=== PATIENT | male | born 1955 | race Caucasian/White ===

== ENCOUNTER → 2020-05-20 | Day surgery (SDC) | payer OTHER ==
[~2020-05-20] VITALS: Ht 180.3 cm; Wt 91.2 kg
[2020-05-20] VITALS (12 sets, daily range): BP systolic 120–177; BP diastolic 61–93
[~2020-05-20] MED LIST: ASPIR 8181 MG; ATORVASTATIN CA20 MG PO; B-121000 MC2; CARVEDILOL3.125 MG PO; CLOPIDOGREL75 MG PO; DEXILANT60 MG; FENTANYL CITRATE/PF 100MCG/2 ML INJ ONE; FERROUS SULFAT325 MG PO; FLOMAX0.4 MG PO; HEMATINIC-FOLI1 EACH; HEPARIN SOD (PORCINE) 1000 UNIT/ML 30ML ONE; HEPARIN SOD/SOD CHLORIDE 2,000 ML ONE; IOPAMIDOL 370 MG/ML 200 ML INFUS..BTL INJ ONE; KLOR-CON 1010 MEQ PO; LIDOCAINE HCL 2% LOCAL 20 ML VIAL ONE; LOSARTAN POTASS25 MG PO; MIDAZOLAM HCL 2 MG/2 ML VIAL ONE; NITROGLYCERIN/D5W 200 MCG/ML 250 ML ONE; NOVOLOG; SERTRALINE HCL50 MG PO; SODIUM CHLORIDE 0.9% 1000ML 1,000 ML ONE; VERAPAMIL HCL 2.5 MG/ML 2 ML VIAL ONE
[2020-05-20 09:35] LABS: BASOPHILS % 0.7 % (0.0-1.0); EOSINOPHILS # (AUTO) 0.2 (0.0-0.4); EOSINOPHILS % 3.7 % (0.0-6.0); HEMATOCRIT 32.2 % (38.2-49.6); HEMOGLOBIN 11.4 g/dL (14.0-18.0); MEAN CORPUSCULAR HEMOGLOBIN 29.9 pg (28-32); MEAN CORPUSCULAR HGB CONC 35.4 g/dL (31-35); MEAN CORPUSCULAR VOLUME 84.5 fL (81-99); MONOCYTES # (AUTO) 0.5 (0.2-0.8); NEUTROPHILS # (AUTO) 3.9 (2.1-6.9); NEUTROPHILS % 68.9 % (38.7-80.0); PLATELET COUNT 272 x10e3/uL (140-360); RED BLOOD COUNT 3.81 x10e6/uL (4.3-5.7); RED CELL DISTRIBUTION WIDTH 12.7 % (11.7-14.4)
[2020-05-20 10:03] LABS: ALBUMIN 3.4 g/dL (3.5-5.0); ANION GAP 13.2 mmol/L (8-16); CREATININE, SERUM 1.35 mg/dL (0.72-1.25); POTASSIUM 4.2 mmol/L (3.5-5.1)
--- NOTE | 2020-05-20 12:21 | NUR ---
1221p Received pt to room #10, Identiferx2,bedside report received from AMEYA Ko. Alert oriented and appropriate, PERRLA, respirations even and unlabored to room air. Pulses x4 extremities equal and strong. Pedal pulses PT/DP X4 and marked. Cap fill brisk < 3 sec. Rt Tr band site no gross issues pain pallor,pressure or dysrhythmia. TR down time at 13:45p dc home at 1700pm DC planning to be compleed with family PU at [facility]. Skin warm and dry integrity appears D/I. IV 20g to left hand presents healthy w/o s/s of infiltration or complaint. 100cchr. Pt has some mbilty issues to left hand assist with snack tray. back to baseline orientation tolerated well w/o nausea .Abdomen soft and supple. pt offered toileting, denies need to urinate or defecate. No personal affects with patient. Family no present at bedside. Pt verbalizes understanding of POC. Currently w/o complaint of pain or need. ds/rn
--- NOTE | 2020-05-20 13:30 | NUR ---
1330 oozing noted to rt tr band site Normal neuro vascular function. +2cc total 14cc in balloon No bleeding or hematoma at this time ds/rn
--- NOTE | 2020-05-20 13:45 | NUR ---
1345p RADIAL Compression removal: Initial Cuff volume (-14cc) 1345p (-2cc) Removed No hematoma/bleeding noted with normal neurovascular function.oozed returned air to ballon 1415p (-2cc) Removed No hematoma/ bleeding noted with normal neurovascular function. 1400p hold air removal a ooze with test removal. ds/rn
--- NOTE | 2020-05-20 14:58 | NUR ---
1458 Yeison Rn to access TR band -5cc x2 positive +4cc remains in tr band balloon. No gross issues bleeding or hematoma. Resume air removal at 1515pm Denies c/o Cp or SOB ds/rn
--- NOTE | 2020-05-20 15:00 | NUR ---
1500p CONTINUATION RADIAL Compression removal: Initial Cuff volume 4cc left TR-BAND 1515p -2cc Removed No hematoma/bleeding noted with normal neurovascular function. 1530 -2cc Removed No hematoma/ bleeding noted with normal neurovascular function. Air removal completed. Stasis achieved sterile 2x2,Tegaderm, Coban dressing No hematoma, bleeding noted with normal neurovascular function. Wrist splint in place. Pt instructed on POC. Ds/Rn
--- NOTE | 2020-05-20 15:45 | NUR ---
1545 TR band site secured Normal neuro vascular function awaiting dc home time at 1700pm ds/rn
--- NOTE | 2020-05-20 17:00 | NUR ---
1700-CCL Pt discharge nursing note:Pt meets DC criteria. Site rt wrist assessed for s/s of complication and presence of hematoma. Skin warm, dry, no discolor, and pulses present. IV removed from left hand. Distal tip appears intact. VS WNL. Pt denies pain, sob, or need at this time. Family at [facility] dc plans completed. Review of discharge paperwork and follow up instructions. verbalized understanding. Pt to wheelchair and transported to front of hospital. Transferred to private vehicle under own strength w/o incident with DC paperwork in hand. - ds/rn
--- NOTE | 2020-05-20 18:19 | Operative Report ---
DATE OF PROCEDURE: 05/20/2020 SURGEON: Manuel Zayas MD INDICATIONS FOR PROCEDURE: Coronary artery disease, stable angina, and positive stress test. PREPROCEDURE ASSESSMENT: The risks, the benefits, and the alternatives of treatment were explained to the patient prior to the procedure. Informed consent was obtained and documented in the medical record. The patient was deemed to be an appropriate candidate for moderate sedation. MEDICATIONS: Please see nursing notes for medications administered throughout the procedure. PROCEDURES PERFORMED: 1. Coronary angiography, right radial approach. 2. Intravascular ultrasound, LAD. 3. Intravascular ultrasound, left circumflex. 4. PCI to left circumflex with drug-eluting stent x1. 5. Moderate sedation supervision, 60 minutes. PROCEDURE DETAILS: The patient was brought to the cardiac catheterization laboratory in a fasting state. Right wrist was prepped and draped in a sterile fashion. A 6-[place] Slender sheath was inserted in the right radial artery using modified Seldinger technique. Coronary angiography was performed using a 5-[place] Rafia radial catheter to engage both the left and right coronary systems. Left heart catheterization was performed using the same Rafia radial catheter. Multiple orthogonal views were taken of each coronary artery. Catheter was removed over the mid LAD stents that appeared to be a hazy area in the midportion of the LAD stents given severe apical ischemia on stress test. We decided to proceed with intravascular ultrasound to confirm for PCI. An XB 3.0 guide catheter was used, which provided adequate support. LAD was wired using a Runthrough wire. Intravascular ultrasound was performed, which showed no significant in-stent restenoses in the LAD. We then changed our attention to the mid left circumflex lesion seen on angiography. The wire was pulled back onto the LAD and advanced across the left circumflex lesion. IVUS was performed, which demonstrated 76% stenosis by IVUS in a large 4 mm left circumflex. We decided to proceed with PCI. For PCI of the left circumflex, direct stenting was performed using a 4.0 x 16 mm Synergy drug-eluting stent, deployed at 14 atmospheres for 20 seconds. This resulted in excellent angiographic results. There were no immediate complications. All catheters were removed over a wire. Access site was closed using a TR band device. Aspirin and Plavix were given at the end of the case in the bottle labeler. ACT near 300 was maintained throughout the procedure using IV boluses of heparin. SIGNIFICANT FINDINGS: Left main; large vessel, no significant disease. LAD; patent stents in the mid LAD. One large diagonal branch mild plaquing only. Left circumflex; large vessel, nondominant, 2 significant OM branches, 60% ostial stenoses in the bifurcation of the 2 OMs distally, 60% to 70% stenosis in the mid left circumflex artery. RCA; large dominant RCA, 30% plaque in the proximal portion, mild plaquing in the RPDA and RPL system. Left heart catheterization demonstrated LVEDP of 14. There was no gradient across the aortic valve. GRAFTS AND IMPLANTS: Drug-eluting stent x1. ESTIMATED BLOOD LOSS: None. SPECIMENS REMOVED: None. COMPLICATIONS: None. FINAL RECOMMENDATIONS: 1. Continue aspirin and Plavix. 2. Follow up in clinic 1 to 2 weeks post procedure. MD JON Ferrell/SANDI /[id number]
== END | disposition home or self-care (01) ==
LOC: CATH LAB 08:12
PROVIDERS: ATTEND Internal Medicine
DX: I25.118 Atherosclerotic heart disease of native coronary artery with other forms of angina pectoris (principal); R94.39 Abnormal result of other cardiovascular function study; I50.22 Chronic systolic (congestive) heart failure; I87.2 Venous insufficiency (chronic) (peripheral); E11.59 Type 2 diabetes mellitus with other circulatory complications; Z95.5 Presence of coronary angioplasty implant and graft; Z79.4 Long term (current) use of insulin; Z79.02 Long term (current) use of antithrombotics/antiplatelets; Z79.82 Long term (current) use of aspirin
CPT/HCPCS: 36415; 80053; 85025; 92928; 92978; 92979; 93454; C1753; C1874; C1887; J1644; J2001; J2250; J3010; J7030; Q9967; 99152; 99153

== ENCOUNTER → 2020-12-26 | Day surgery (SDC) | payer OTHER ==
[2020-12-21 10:21] LABS: BASOPHILS % 0.6 % (0.0-1.0); EOSINOPHILS # (AUTO) 0.3 (0.0-0.4); EOSINOPHILS % 4.8 % (0.0-6.0); HEMATOCRIT 29.5 % (38.2-49.6); HEMOGLOBIN 10.1 g/dL (14.0-18.0); LYMPHOCYTES # (AUTO) 0.9 (1.0-3.2); LYMPHOCYTES % 17.8 % (18.0-39.1); MEAN CORPUSCULAR HEMOGLOBIN 30.2 pg (28-32); MEAN CORPUSCULAR HGB CONC 34.2 g/dL (31-35); MEAN CORPUSCULAR VOLUME 88.3 fL (81-99); MONOCYTES # (AUTO) 0.5 (0.2-0.8); MONOCYTES % 8.9 % (4.4-11.3); NEUTROPHILS # (AUTO) 3.4 (2.1-6.9); NEUTROPHILS % 66.2 % (38.7-80.0); PLATELET COUNT 256 x10e3/uL (140-360); RED BLOOD COUNT 3.34 x10e6/uL (4.3-5.7); RED CELL DISTRIBUTION WIDTH 12.6 % (11.7-14.4)
[2020-12-21 10:58] LABS: ALBUMIN 3.4 g/dL (3.5-5.0); ALBUMIN/GLOBULIN RATIO 1.1 (0.8-2.0); ANION GAP 13.8 mmol/L (8-16); CALCIUM 8.5 mg/dL (8.4-10.2); CREATININE, SERUM 1.51 mg/dL (0.72-1.25); POTASSIUM 4.8 mmol/L (3.5-5.1)
[~2020-12-26] VITALS: Ht 180.3 cm; Wt 91.6 kg
[2020-12-26] VITALS (12 sets, daily range): BP systolic 132–177; BP diastolic 72–99
[~2020-12-26] MED LIST changes: -ASPIR 8181 MG; +ASPIR 8181 MG PO; +ASPIRIN 325 MG TAB ONE; +CLOPIDOGREL BISULFATE 75 MG TAB ONE; -DEXILANT60 MG; +DEXILANT60 MG PO; +FUROSEMIDE40 MG PO; -HEMATINIC-FOLI1 EACH; +HEMATINIC-FOLI1 EACH PO; +NOVOLOG100 UNIT/1 SC; +SODIUM BICARBO650 MG PO; +SPIRONOLACTONE25 MG PO; +VITAMIN D3 PO; +ZYRTEC10 MG PO
== END | disposition home or self-care (01) ==
LOC: CATH LAB 07:33
PROVIDERS: ATTEND Internal Medicine
DX: I25.119 Atherosclerotic heart disease of native coronary artery with unspecified angina pectoris (principal); I10 Essential (primary) hypertension; Z95.5 Presence of coronary angioplasty implant and graft; E11.59 Type 2 diabetes mellitus with other circulatory complications; R94.39 Abnormal result of other cardiovascular function study; Z01.812 Encounter for preprocedural laboratory examination; Z20.822 Contact with and (suspected) exposure to COVID-19; Z79.4 Long term (current) use of insulin; Z79.02 Long term (current) use of antithrombotics/antiplatelets; Z79.82 Long term (current) use of aspirin
CPT/HCPCS: 36415 ×2; 80053; 82948; 85025; 92928; 93454; C1725 ×2; C1874; C1887; J1644; J2001; J2250; J3010; J7030; Q9967; U0002; 99152; 99153

== ENCOUNTER → 2021-07-03 | Day surgery (SDC) | payer OTHER ==
[2021-06-30 12:02] LABS: BASOPHILS # (AUTO) 0.1 (0.0-0.1); BASOPHILS % 1.3 % (0.0-1.0); EOSINOPHILS # (AUTO) 0.3 (0.0-0.4); EOSINOPHILS % 5.9 % (0.0-6.0); HEMATOCRIT 37.6 % (38.2-49.6); HEMOGLOBIN 12.5 g/dL (14.0-18.0); LYMPHOCYTES % 20.7 % (18.0-39.1); MEAN CORPUSCULAR HEMOGLOBIN 30.3 pg (28-32); MEAN CORPUSCULAR HGB CONC 33.2 g/dL (31-35); MEAN CORPUSCULAR VOLUME 91.3 fL (81-99); MONOCYTES # (AUTO) 0.5 (0.2-0.8); MONOCYTES % 10.5 % (4.4-11.3); NEUTROPHILS # (AUTO) 2.9 (2.1-6.9); NEUTROPHILS % 60.8 % (38.7-80.0); PLATELET COUNT 272 x10e3/uL (140-360); RED BLOOD COUNT 4.12 x10e6/uL (4.3-5.7); RED CELL DISTRIBUTION WIDTH 12.9 % (11.7-14.4)
[2021-06-30 12:17] LABS: INR 0.9; PROTHROMBIN TIME 12.3 seconds (11.9-14.5)
[2021-06-30 12:38] LABS: ALBUMIN 3.7 g/dL (3.5-5.0); ANION GAP 14.3 mmol/L (8-16); CALCIUM 10.1 mg/dL (8.4-10.2); CHOL/HDL RATIO 3.6 (3.9-4.7); CREATININE, SERUM 1.79 mg/dL (0.72-1.25); POTASSIUM 4.3 mmol/L (3.5-5.1)
[2021-07-03] VITALS (8 sets, daily range): BP systolic 124–176; BP diastolic 75–96
[~2021-07-03] VITALS: Ht 180.3 cm; Wt 92.1 kg
[~2021-07-03] MED LIST changes: -ASPIRIN 325 MG TAB ONE; +ASPIRIN 81 MG CHEW TAB ONE; +FLONASE ALLERG9.9 ML; -NITROGLYCERIN/D5W 200 MCG/ML 250 ML ONE; -VERAPAMIL HCL 2.5 MG/ML 2 ML VIAL ONE
== END | disposition home or self-care (01) ==
LOC: CATH LAB 10:27
PROVIDERS: ATTEND Internal Medicine
DX: I25.118 Atherosclerotic heart disease of native coronary artery with other forms of angina pectoris (principal); R94.39 Abnormal result of other cardiovascular function study; I11.0 Hypertensive heart disease with heart failure; I50.9 Heart failure, unspecified; Z95.5 Presence of coronary angioplasty implant and graft; E11.9 Type 2 diabetes mellitus without complications; Z01.812 Encounter for preprocedural laboratory examination; Z20.822 Contact with and (suspected) exposure to COVID-19; Z79.02 Long term (current) use of antithrombotics/antiplatelets; Z79.82 Long term (current) use of aspirin; Z79.4 Long term (current) use of insulin; Z79.899 Other long term (current) drug therapy
CPT/HCPCS: 36415; 80053; 80061; 85025; 85610; 92928; 92978; 93458; C1725 ×2; C1753; C1874; J1644; J2001; J2250; J3010; J7030; Q9967; U0002; 99152; 99153

== ENCOUNTER 2021-12-21 12:26 | Inpatient (IN) | payer MEDICARE, OTHER ==
[~2021-12-21] VITALS: Ht 180.3 cm; Wt 85.3 kg
[2021-12-21] VITALS (13 sets, daily range): BP systolic 112–176; BP diastolic 63–87
[~2021-12-21 12:26] MED LIST changes: -ASPIRIN 81 MG CHEW TAB ONE; -CLOPIDOGREL BISULFATE 75 MG TAB ONE; -FENTANYL CITRATE/PF 100MCG/2 ML INJ ONE; -HEPARIN SOD (PORCINE) 1000 UNIT/ML 30ML ONE; -HEPARIN SOD/SOD CHLORIDE 2,000 ML ONE; -IOPAMIDOL 370 MG/ML 200 ML INFUS..BTL INJ ONE; -LIDOCAINE HCL 2% LOCAL 20 ML VIAL ONE; -MIDAZOLAM HCL 2 MG/2 ML VIAL ONE; -SODIUM CHLORIDE 0.9% 1000ML 1,000 ML ONE
[2021-12-21] MEDS ORDERED: SODIUM CHLORIDE 0.9% 1000ML 1,000 ML IV SCH ×2 (13:15→14:15)
[2021-12-21 13:47] LABS: BASOPHILS # (AUTO) 0.1 (0.0-0.1); EOSINOPHILS # (AUTO) 0.3 (0.0-0.4); EOSINOPHILS % 4.3 % (0.0-6.0); HEMATOCRIT 31.3 % (38.2-49.6); HEMOGLOBIN 10.9 g/dL (14.0-18.0); LYMPHOCYTES # (AUTO) 1.1 (1.0-3.2); LYMPHOCYTES % 16.7 % (18.0-39.1); MEAN CORPUSCULAR HEMOGLOBIN 30.4 pg (28-32); MEAN CORPUSCULAR HGB CONC 34.8 g/dL (31-35); MEAN CORPUSCULAR VOLUME 87.4 fL (81-99); MONOCYTES # (AUTO) 0.7 (0.2-0.8); MONOCYTES % 11.6 % (4.4-11.3); NEUTROPHILS # (AUTO) 4.1 (2.1-6.9); NEUTROPHILS % 65.4 % (38.7-80.0); PLATELET COUNT 346 x10e3/uL (140-360); RED BLOOD COUNT 3.58 x10e6/uL (4.3-5.7); RED CELL DISTRIBUTION WIDTH 12.3 % (11.7-14.4)
[2021-12-21 14:05] LABS: ALBUMIN 3.9 g/dL (3.5-5.0); ALBUMIN/GLOBULIN RATIO 0.9 (0.8-2.0); ANION GAP 13.1 mmol/L (8-16); CREATININE, SERUM 3.43 mg/dL (0.72-1.25); POTASSIUM 4.1 mmol/L (3.5-5.1)
[2021-12-21 14:07] LABS: CALCIUM 15.1 mg/dL (8.4-10.2)
[2021-12-21] MEDS: SODIUM CHLORIDE 0.9% 1000ML 1,000 ML IV SCH ×2 (14:41→19:15)
[2021-12-22] VITALS (27 sets, daily range): BP systolic 128–175; BP diastolic 69–113
[2021-12-22] MEDS: SODIUM CHLORIDE 0.9% 1000ML 1,000 ML IV SCH ×3 (03:17→17:00)
[2021-12-22 04:59] LABS: BASOPHILS % 0.8 % (0.0-1.0); EOSINOPHILS # (AUTO) 0.3 (0.0-0.4); EOSINOPHILS % 5.5 % (0.0-6.0); HEMATOCRIT 29.3 % (38.2-49.6); HEMOGLOBIN 10.2 g/dL (14.0-18.0); LYMPHOCYTES # (AUTO) 0.7 (1.0-3.2); LYMPHOCYTES % 13.7 % (18.0-39.1); MEAN CORPUSCULAR HEMOGLOBIN 30.4 pg (28-32); MEAN CORPUSCULAR HGB CONC 34.8 g/dL (31-35); MEAN CORPUSCULAR VOLUME 87.5 fL (81-99); MONOCYTES # (AUTO) 0.6 (0.2-0.8); MONOCYTES % 12.2 % (4.4-11.3); NEUTROPHILS # (AUTO) 3.5 (2.1-6.9); NEUTROPHILS % 66.5 % (38.7-80.0); PLATELET COUNT 297 x10e3/uL (140-360); RED BLOOD COUNT 3.35 x10e6/uL (4.3-5.7); RED CELL DISTRIBUTION WIDTH 12.2 % (11.7-14.4)
[2021-12-22 05:25] LABS: ALBUMIN 3.1 g/dL (3.5-5.0); ALBUMIN/GLOBULIN RATIO 0.9 (0.8-2.0); ANION GAP 10.5 mmol/L (8-16); CALCIUM 11.7 mg/dL (8.4-10.2); CREATININE, SERUM 2.79 mg/dL (0.72-1.25); POTASSIUM 3.5 mmol/L (3.5-5.1)
[2021-12-22] MEDS: PANTOPRAZOLE SOD 40 MG TABEC PO SCH (07:59)
[2021-12-22] MEDS ORDERED: FLUTICASONE PROPIONATE NASAL SPRAY NS PRN (08:00)
[2021-12-22] MEDS ORDERED: HYDRALAZINE HCL 20 MG/ML VIAL IV PRN (08:30)
[2021-12-22] MEDS ORDERED: PANTOPRAZOLE SOD 40 MG TABEC PO SCH (09:00)
[2021-12-22] MEDS: FOLIC ACID PO SCH (09:00)
[2021-12-22] MEDS ORDERED: SODIUM BICARBONATE 650 MG TAB PO SCH (09:00)
[2021-12-22] MEDS ORDERED: SERTRALINE HCL 50 MG TAB PO SCH (09:00)
[2021-12-22] MEDS: FERROUS FUMARATE PO SCH (09:00)
[2021-12-22] MEDS ORDERED: LORATADINE 10 MG TAB PO SCH (09:00)
[2021-12-22] MEDS: DOCUSATE SODIUM 100 MG CAP PO SCH (09:07)
[2021-12-22] MEDS: ASPIRIN 81 MG CHEW TAB PO SCH (09:07)
[2021-12-22] MEDS: CARVEDILOL 3.125 MG TAB PO SCH ×2 (09:08→17:00)
[2021-12-22] MEDS: AMLODIPINE BESYLATE 5 MG TAB PO SCH (09:08)
[2021-12-22] MEDS: CLOPIDOGREL BISULFATE 75 MG TAB PO SCH (09:08)
[2021-12-22] MEDS: FERROUS SULFATE 325 MG TAB PO SCH (09:08)
[2021-12-22] MEDS ORDERED: POTASSIUM CHLORIDE 20 MEQ TAB CR PO STA (10:01)
[2021-12-22] MEDS: TAMSULOSIN HCL 0.4 MG CAP PO SCH (21:28)
[2021-12-22] MEDS: ATORVASTATIN 20 MG TAB PO SCH (21:28)
[2021-12-23] VITALS (7 sets, daily range): BP systolic 138–178; BP diastolic 74–93
[2021-12-23] MEDS: SODIUM CHLORIDE 0.9% 1000ML 1,000 ML IV SCH ×3 (03:55→17:41)
[2021-12-23 05:18] LABS: ALBUMIN 3.1 g/dL (3.5-5.0); ALBUMIN/GLOBULIN RATIO 0.9 (0.8-2.0); CALCIUM 11.3 mg/dL (8.4-10.2); CREATININE, SERUM 2.4 mg/dL (0.72-1.25)
[2021-12-23] MEDS: AMLODIPINE BESYLATE 5 MG TAB PO SCH (08:49)
[2021-12-23] MEDS: CLOPIDOGREL BISULFATE 75 MG TAB PO SCH (08:49)
[2021-12-23] MEDS: FERROUS SULFATE 325 MG TAB PO SCH (08:49)
[2021-12-23] MEDS: FERROUS FUMARATE PO SCH (08:49)
[2021-12-23] MEDS: DOCUSATE SODIUM 100 MG CAP PO SCH (08:49)
[2021-12-23] MEDS: PANTOPRAZOLE SOD 40 MG TABEC PO SCH (08:49)
[2021-12-23] MEDS: CARVEDILOL 3.125 MG TAB PO SCH ×2 (08:49→17:41)
[2021-12-23] MEDS: ASPIRIN 81 MG CHEW TAB PO SCH (08:49)
[2021-12-23] MEDS: FOLIC ACID PO SCH (08:49)
[2021-12-23] MEDS ORDERED: PAMIDRONATE DISODIUM 30 MG/VIAL IV SCH (11:45)
[2021-12-23] MEDS ORDERED: PAMIDRONATE DISODIUM 30 MG in SODIUM CHLORIDE 0.9% 500ML 500 ML IV ONE (13:00)
[2021-12-23] MEDS: TAMSULOSIN HCL 0.4 MG CAP PO SCH (20:34)
[2021-12-23] MEDS: ATORVASTATIN 20 MG TAB PO SCH (20:34)
[2021-12-24] MEDS: SODIUM CHLORIDE 0.9% 1000ML 1,000 ML IV SCH ×3 (01:02→04:26)
[2021-12-24 01:26] VITALS: BP 158/95
[2021-12-24 04:00] VITALS: BP 154/76
[2021-12-24 04:58] LABS: CLARITY,URINE CLEAR (CLEAR); COLOR,URINE STRAW (YELLOW)
[2021-12-24 04:59] LABS: KETONES,URINE NEGATIVE (NEGATIVE); LEUKOCYTE ESTERASE ,URINE NEGATIVE (NEGATIVE); NITRITE,URINE NEGATIVE (NEGATIVE); PROTEIN,URINE DIPSTICK 2+ (NEGATIVE); URINE UROBILINOGEN 0.2 mg/dL (0.2 - 1)
[2021-12-24 05:01] LABS: BACTERIA,URINE FEW /HPF; EPITHELIAL CELLS,URINE FEW /LPF; RENAL EPITHELIAL CELLS,URINE FEW
[2021-12-24 06:30] LABS: ANION GAP 8.5 mmol/L (8-16); CALCIUM 9.9 mg/dL (8.4-10.2); POTASSIUM 3.5 mmol/L (3.5-5.1)
[2021-12-24 06:50] LABS: CREATININE, SERUM 2.22 mg/dL (0.72-1.25)
[2021-12-24 08:21] LABS: PHOSPHORUS 2.2 MG/DL (2.3-4.7)
[2021-12-24 08:38] VITALS: BP 160/84
[2021-12-24 08:58] LABS: CREATININE,URINE RANDOM 30.71 mg/dL (63-166); TOTAL PROTEIN, URINE 51.4 mg/dL (1-14)
[2021-12-24 09:00] VITALS: BP 160/84
[2021-12-24] MEDS: FOLIC ACID PO SCH (09:00)
[2021-12-24] MEDS ORDERED: AMLODIPINE BESYLATE 10 MG TAB PO SCH (09:00)
[2021-12-24] MEDS: FERROUS FUMARATE PO SCH (09:00)
[2021-12-24] MEDS: ASPIRIN 81 MG CHEW TAB PO SCH (09:15)
[2021-12-24] MEDS: FERROUS SULFATE 325 MG TAB PO SCH (09:15)
[2021-12-24] MEDS: DOCUSATE SODIUM 100 MG CAP PO SCH (09:15)
[2021-12-24] MEDS: CLOPIDOGREL BISULFATE 75 MG TAB PO SCH (09:15)
[2021-12-24] MEDS: CARVEDILOL 3.125 MG TAB PO SCH (09:15)
[2021-12-24] MEDS: PANTOPRAZOLE SOD 40 MG TABEC PO SCH (09:15)
[2021-12-24 12:29] VITALS: BP 157/83
[2021-12-24] MEDS ORDERED: PHOSPHORUS 250 MG TAB PO SCH (13:00)
[2021-12-24] MEDS ORDERED: HYDRALAZINE HCL25 MG PO (14:05)
== END 2021-12-24 14:50 | disposition home or self-care (01) | DRG 684 ==
LOC: ER 12:30 → ERHOLD 14:23 → ICU 18:27 → MED/SURG 12-23 15:10
PROVIDERS: ADMIT Internal Medicine; ATTEND Internal Medicine
DX: N17.9 Acute kidney failure, unspecified (principal); E83.52 Hypercalcemia; E86.0 Dehydration; E11.22 Type 2 diabetes mellitus with diabetic chronic kidney disease; N18.32 Chronic kidney disease, stage 3b; I95.9 Hypotension, unspecified; I44.0 Atrioventricular block, first degree; I25.10 Atherosclerotic heart disease of native coronary artery without angina pectoris; Z95.5 Presence of coronary angioplasty implant and graft; E11.21 Type 2 diabetes mellitus with diabetic nephropathy; Z79.899 Other long term (current) drug therapy; E83.39 Other disorders of phosphorus metabolism; I10 Essential (primary) hypertension; Z96.41 Presence of insulin pump (external) (internal); D63.8 Anemia in other chronic diseases classified elsewhere
CPT/HCPCS: 36415; 71045; 71250; 76770; 80048; 80053; 81001; 82570; 82728; 82948; 83540; 83880; 83970; 84100; 84156; 84165; 84166; 84466; 84484; 84550; 85025; 87086; 93005; 94799; 97139; 99284; J2430; J7030; J7040; U0002